=== PATIENT | female | born 1980 | race Caucasian/White ===

== ENCOUNTER 2017-02-22 20:40 | Emergency (ER) | payer MEDICAID, OTHER ==
[2017-02-22] MEDS ORDERED: Lidocaine 1% 20 ML MDV INJECT ONE (20:51)
--- NOTE | 2017-02-22 20:51 | EDM.PDOC ---
ED HPI GENERAL MEDICAL PROBLEM - General Chief Complaint: Laceration Stated Complaint: LACERATION RT FOOT Time Seen by Provider: 02/22/17 20:44 - History of Present Illness INITIAL COMMENTS - FREE TEXT/NARRATIVE: HISTORY AND PHYSICAL: History of present illness: Patient 36-year-old female presents with concern of injury to right eye in form of laceration patient is known to be a cutter and states that this wound is slightly deeper than has been accomplished in the past she's up-to-date on her tetanus denies any other trauma concern denies any suicidal or homicidal ideation. Review of systems: As per history of present illness and below otherwise all systems reviewed and negative. Past medical history: As per history of present illness and as reviewed below otherwise noncontributory. Surgical history: As per history of present illness and as reviewed below otherwise noncontributory. Social history: No reported history of drug or alcohol abuse. Family history: As per history of present illness and as reviewed below otherwise noncontributory. Physical exam: HEENT: Atraumatic, normocephalic, pupils reactive, negative for conjunctival pallor or scleral icterus, mucous membranes moist, throat clear, neck supple, nontender, trachea midline. Lungs: Clear to auscultation, breath sounds equal bilaterally, chest nontender. Heart: S1S2, regular, negative for clicks, rubs, or JVD. Abdomen: Soft, nondistended, nontender. Negative for masses or hepatosplenomegaly. Negative for costovertebral tenderness. Pelvis: Stable nontender. Genitourinary: Deferred. Rectal: Deferred. Extremities: Patient has 2 wounds right thigh 1 at approximately 1/2 cm moderate depth with good hemostasis was much more superficial approximate 4 cm in length Neuro: Awake, alert, oriented. Cranial nerves II through XII unremarkable. Cerebellum unremarkable. Motor and sensory unremarkable throughout. Exam nonfocal. Diagnostics: None Therapeutics: Patient anesthetized 1% lidocaine irrigated Emerson-Soft 0.9 normal saline and closed with 5-0 absorbable gut suture Impression: #1 laceration right thigh Definitive disposition and diagnosis as appropriate pending reevaluation and review of above. - Related Data Allergies Allergy/AdvReac Type Severity Reaction Status Date / Time No Known Allergies Allergy Verified 01/12/16 21:59 Home Meds: Home Meds Control Pills 01/12/16 [History] traZODone 50 mg PO BEDTIME 01/12/16 [History] Past Medical History - Past Health History Medical/Surgical History: Denies Medical/Surgical History Genitourinary History: Reports: UTI, Recurrent Psychiatric History: Reports: Anxiety, Depression - Past Surgical History HEENT Surgical History: Reports: Oral Surgery Social & Family History - Family History Family Medical History: Noncontributory - Tobacco Use Smoking Status *Q: Never Smoker - Recreational Drug Use Recreational Drug Use: No ED ROS GENERAL - Review of Systems Review Of Systems: ROS reveals no pertinent complaints other than HPI. ED EXAM, SKIN/RASH Exam: See Below (See dictation) Departure - Departure Time of Disposition: 20:50 Disposition: Home, Self-Care 01 Condition: Good Clinical Impression: Laceration - Discharge Information Forms: ED Department Discharge Additional Instructions: The following information is given to patients seen in the emergency department who are being discharged to home. This information is to outline your options for follow-up care. We provide all patients seen in our emergency department with a follow-up referral. The need for follow-up, as well as the timing and circumstances, are variable depending upon the specifics of your emergency department visit. If you don't have a primary care physician on staff, we will provide you with a referral. We always advise you to contact your personal physician following an emergency department visit to inform them of the circumstance of the visit and for follow-up with them and/or the need for any referrals to a consulting specialist. The emergency department will also refer you to a specialist when appropriate. This referral assures that you have the opportunity for followup care with a specialist. All of these measure are taken in an effort to provide you with optimal care, which includes your followup. Under all circumstances we always encourage you to contact your private physician who remains a resource for coordinating your care. When calling for followup care, please make the office aware that this follow-up is from your recent emergency room visit. If for any reason you are refused follow-up, please contact the [facility] emergency department at and asked to speak to the emergency department charge nurse. Wound care PMD follow-up 2448 hrs. return as needed as discussed
[2017-02-22] MEDS ORDERED: Bacitracin Oint 1 GM U/D Packet TOP ONE (20:52)
[2017-02-22] MEDS ORDERED: ALPRAZolam 0.25 MG Tab PO ONE (21:06)
[2017-02-22 21:26] VITALS: BP 111/75
== END 2017-02-22 21:26 | disposition home or self-care (01) ==
LOC: MW.ED 20:40
DX: S71.111A Laceration without foreign body, right thigh, initial encounter (principal); F41.9 Anxiety disorder, unspecified; F32.9 Major depressive disorder, single episode, unspecified; Z87.440 Personal history of urinary (tract) infections; Z98.890 Other specified postprocedural states; X58.XXXA Exposure to other specified factors, initial encounter
CPT/HCPCS: 12002; 99283; A9270; 99282

== ENCOUNTER 2017-05-26 23:48 | Emergency (ER) | payer OTHER ==
[2017-05-27] MEDS ORDERED: Bacitracin Oint 1 GM U/D Packet TOP ONE (01:29)
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
[2017-05-27 02:22] VITALS: BP 115/84
--- NOTE | 2017-05-27 11:23 | CR ---
EXAM DATE: 05/26/17 PATIENT'S AGE: 36 Patient: LIANNA CLIFTNO Facility: [place], [place] Site . Site : 1980 Study: XRay Extremity FEMUR [id number]/11/2017 1:03:10 AM Ordering Physician: Doctor Fajardo Final Report: Indication: Two lacerations lateral upper thigh, self-inflicted. Technique: Right femur four views. Comparison: None. Findings: No acute fracture or dislocation. No additional osseous abnormality. No radiopaque foreign body in the soft tissues. Impression: No acute osseous abnormality or radiopaque foreign body. Dictated by Clay Peña MD @ 05/27/2017 1:10:34 AM Dictated by: Clay Peña MD @ 05/27/2017 01:10:57 (Electronic Signature) Report Signed by Proxy. [facility]
== END 2017-05-27 01:54 | disposition home or self-care (01) ==
LOC: MW.ED 23:48
DX: S71.111A Laceration without foreign body, right thigh, initial encounter (principal); Z87.440 Personal history of urinary (tract) infections; F41.9 Anxiety disorder, unspecified; F32.9 Major depressive disorder, single episode, unspecified; X78.1XXA Intentional self-harm by knife, initial encounter
CPT/HCPCS: 12002; 73552-26-LT; 73552-RT; 99283; 99284